=== PATIENT | female | born 1970 ===

== ENCOUNTER 2020-08-05 11:06 | Outpatient (CLI) | payer OTHER | END 2020-08-05 11:17 | disposition home or self-care (01) | LOC: RAD 11:06 | PROVIDERS: ATTEND Orthopaedic Surgery | DX: S52.124A Nondisplaced fracture of head of right radius, initial encounter for closed fracture (principal); S52.024A Nondisplaced fracture of olecranon process without intraarticular extension of right ulna, initial encounter for closed fracture ==